=== PATIENT | male | born 1955 | race Caucasian/White ===

== ENCOUNTER 2017-12-04 10:40 | Emergency (ER) | payer BC ==
[~2017-12-04] VITALS: Ht 180.3 cm; Wt 124.5 kg
[~2017-12-04 10:40] MED LIST: ALEVE 220MG220 MG PO; ASPIR-LOW81 MG PO; ASPIRIN 32325 MG/TAB PO; ASPIRIN 81M81 MG/TA2 PO; BUPROPION HCL75 MG PO; BUPROPION75 MG PO; CENTRUM SILVER1 TA1 PO; CHOLESTEROL MED; CLOPIDOGREL; CLOPIDOGREL PO; COUMADIN 22.5 MG/TAB PO; COUMADIN 5MG5 MG/TAB PO; COUMADIN 77.5 MG/TAB PO; COUMADIN5 M1 IV; COUMADIN5 MG PO; CRESTOR 10MG10 MG PO; EPA FISH OIL1000 MG PO; FISH OIL1 IU PO; GLUCOPHAGE XR500 M1 PO; IMDUR 60MG60 MG/TAB PO; IMDUR60 MG PO; LANTUS SOLOS100 U/ML SC; LEVOXYL0.025 MG PO; LIPITOR20 MG PO; LIPOFEN150 MG PO; LISINOPRIL2.5 MG PO; LOPRESSOR; LOVENOX 100100 MG/ML SQ; LOVENOX 3030 MG/0.3 SQ; LOVENOX40 MG/0.4 SC; MAXZIDE; MEDI-FIRST ASP325 MG PO; METOPROLOL SUC100 M1 PO; MULTIPLE VITAMI1 CAP PO; MULTIPLE VITAMI1 TAB PO; Metoprolol ER PO; NITROGLYCERIN0.4 MG SL; NITROSTAT0.4 MG/TAB SL; NOVOLOG FLEX100 U/ML SC; OMEPRAZOLE20 MG PO; PLAVIX 75MG TAB75 MG PO; PREVACID30 MG PO; PRILOSEC; SUPER EPA 2002000 MG PO; TOPROL XL100 MG PO; TRICOR145 MG PO; TRICOR54 MG PO; TRILIPIX 135MG PO; VITAMIN C BUFF500 MG PO; VITAMIN C500 MG PO; VITAMIN D1000 IU PO; VITAMIN D32000 I1 PO; VITAMIN D32000 IU PO; WARFARIN SODIUM5 MG PO; WELLBUTRIN 75MG75 MG PO; WELLBUTRIN PO; ZESTRIL2.5 MG PO; ZOCOR 20MG20 MG PO; ZOCOR20 MG PO; [UNRECOGNIZED DRUG - OTHER]; [UNRECOGNIZED DRUG - REMARK]; [UNRECOGNIZED DRUG - REMARK]
[2017-12-04 10:41] VITALS: TEMP 99.2
[2017-12-04] MEDS ORDERED: PRINIVIL10 MG PO (10:55)
[2017-12-04] MEDS ORDERED: TRICOR145 MG PO (10:55)
[2017-12-04] MEDS ORDERED: FLOMAX 0.40.4 MG/CAP PO (10:57)
[2017-12-04] MEDS ORDERED: RANEXA 500MG T500 MG PO (10:58)
[2017-12-04 11:11] LABS: BASO % 0.2 % (0.0-2.0); EOS # 0.1 (0.0-0.7); EOS % 1.3 % (0-4.0); GRAN # 3.8 (1.4-6.5); GRAN % 71.8 % (42.2-75.2); HEMATOCRIT 38.3 % (42.0-52.0); HEMOGLOBIN 13.4 g/dl (13.5-18.0); LYMPH # 1.1 (1.2-3.4); LYMPH % 19.9 % (20.0-51.0); MEAN CELL VOLUME 84 fl (80.0-100.0); MEAN CORPUSCULAR HEMOGLOBIN 30 pg (27.0-31.0); MEAN CORPUSCULAR HGB CONC 35 g/dl (33.0-37.0); MEAN PLATELET VOLUME 9.8 fl (7.4-10.4); MONO # 0.3 (0.1-0.6); MONO % 6.2 % (1.7-9.3); PLATELET COUNT 124 K/mm3 (130-400); RED BLOOD COUNT 4.54 M/mm3 (4.20-5.60)
[2017-12-04 11:13] LABS: INR 2.7 (0.8-3.0); PROTHROMBIN TIME 30.7 SECONDS (9.7-12.8)
[2017-12-04 11:16] LABS: PARTIAL THROMBOPLASTIN TIME 44.9 SECONDS (26.0-37.0)
[2017-12-04 11:19] LABS: ALANINE AMINOTRANSFERASE 44 U/L (21-72); ALBUMIN 3.9 gm/dL (3.5-5.0); ALKALINE PHOSPHATASE 58 U/L (50-136); ANION GAP 9 mmol/L (7-16); AST,SGOT 41 U/L (15-37); BILIRUBIN,TOTAL 0.5 mg/dL (0.0-1.0); BLOOD UREA NITROGEN 20 mg/dL (9-20); CALCIUM 8.6 mg/dL (8.4-10.2); CARBON DIOXIDE 25 mmol/L (22-30); CHLORIDE 105 mmol/L (98-107); CREATININE, serum 0.77 mg/dL (0.66-1.25); GLUCOSE 186 mg/dL (74-106); POTASSIUM 3.8 mmol/L (3.4-5.0); SODIUM 139 mmol/L (137-145); TOTAL PROTEIN 6.8 gm/dL (6.4-8.2)
[2017-12-04 11:31] LABS: TROPONIN-I < 0.012 ng/mL (0.000-0.034)
[2017-12-04 15:52] VITALS: BP 107/45; PULSE 54
== END 2017-12-04 15:53 | disposition home or self-care (01) ==
LOC: COL.ER 10:40
PROVIDERS: Family Medicine
DX: R07.89 Other chest pain (principal); Z79.01 Long term (current) use of anticoagulants; Z79.84 Long term (current) use of oral hypoglycemic drugs; Z95.1 Presence of aortocoronary bypass graft
CPT/HCPCS: J3010

== ENCOUNTER → 2018-02-05 | Outpatient (CLI) | payer BC ==
[~2018-02-05] MED LIST changes: +FLOMAX 0.40.4 MG/CAP PO; +PRINIVIL10 MG PO; +RANEXA 500MG T500 MG PO
== END ==
LOC: COL.RAD 14:16
DX: K80.20 Calculus of gallbladder without cholecystitis without obstruction (principal); N40.0 Benign prostatic hyperplasia without lower urinary tract symptoms; R31.0 Gross hematuria

== ENCOUNTER 2018-03-26 09:55 | Inpatient (IN) | payer BC ==
[~2018-03-26] VITALS: Ht 180.3 cm; Wt 123.0 kg
[2018-03-26] VITALS (378 sets, daily range): BP systolic 114–149; BP diastolic 50–75; PULSE 54–61; TEMP 98.1–98.3; O2SAT 93–99
[~2018-03-26 09:55] MED LIST changes: -METOPROLOL SUC100 M1 PO
[2018-03-26] MEDS ORDERED: COUMADIN 5MG5 MG/TAB PO (10:15)
[2018-03-26 10:20] LABS: BASO % 0.4 % (0.0-2.0); EOS # 0.2 (0.0-0.7); EOS % 3.4 % (0-4.0); GRAN # 3.2 (1.4-6.5); GRAN % 60.3 % (42.2-75.2); HEMATOCRIT 41.3 % (42.0-52.0); HEMOGLOBIN 14.1 g/dl (13.5-18.0); LYMPH # 1.5 (1.2-3.4); LYMPH % 27.5 % (20.0-51.0); MEAN CELL VOLUME 86 fl (80.0-100.0); MEAN CORPUSCULAR HEMOGLOBIN 29 pg (27.0-31.0); MEAN CORPUSCULAR HGB CONC 34 g/dl (33.0-37.0); MEAN PLATELET VOLUME 9.5 fl (7.4-10.4); MONO # 0.4 (0.1-0.6); MONO % 7.5 % (1.7-9.3); PLATELET COUNT 123 K/mm3 (130-400); RED BLOOD COUNT 4.83 M/mm3 (4.20-5.60); REDCELL DISTRIBUTION WIDTH-CV 13.9 % (11.5-14.5)
[2018-03-26 10:29] LABS: ALBUMIN 3.9 gm/dL (3.5-5.0); BILIRUBIN,TOTAL 0.4 mg/dL (0.0-1.0); CALCIUM 8.8 mg/dL (8.4-10.2); CREATININE, serum 0.92 mg/dL (0.66-1.25); POTASSIUM 4.2 mmol/L (3.4-5.0); TOTAL PROTEIN 6.9 gm/dL (6.4-8.2)
[2018-03-26 10:59] LABS: INR 2.7 (0.8-3.0); PROTHROMBIN TIME 30.7 SECONDS (9.7-12.8)
[2018-03-26 11:01] LABS: PARTIAL THROMBOPLASTIN TIME 42.2 SECONDS (26.0-37.0)
[2018-03-26 11:08] LABS: TROPONIN-I < 0.012 ng/mL (0.000-0.034)
[2018-03-26] MEDS ORDERED: ISOSORBIDE MON120 MG PO (13:07)
[2018-03-26] MEDS ORDERED: SYNTHROID0.125 MG/T PO (13:08)
[2018-03-26] MEDS ORDERED: MULTI VITAMINS1 TAB PO (13:14)
[2018-03-26 23:37] LABS: INR 2.6 (0.8-3.0); PROTHROMBIN TIME 29.8 SECONDS (9.7-12.8)
[2018-03-27] VITALS (930 sets, daily range): BP systolic 87–135; BP diastolic 53–75; PULSE 51–65; TEMP 98.3–99; O2SAT 80–100
[2018-03-27 06:27] LABS: INR 2.2 (0.8-3.0); PROTHROMBIN TIME 24.5 SECONDS (9.7-12.8)
[2018-03-27 06:30] LABS: CHOLESTEROL 128 mg/dL (120-200); CHOLESTEROL RISK RATIO 4.7; HDL CHOLESTEROL 27 mg/dL; LDL CHOLESTEROL 65 mg/dL; TRIGLYCERIDE 179 mg/dL
[2018-03-27 06:42] LABS: TROPONIN-I < 0.012 ng/mL (0.000-0.034)
[2018-03-27 11:09] LABS: INR 1.9 (0.8-3.0); PROTHROMBIN TIME 21.7 SECONDS (9.7-12.8)
[2018-03-27 19:18] LABS: INR 1.6 (0.8-3.0); PROTHROMBIN TIME 18.1 SECONDS (9.7-12.8)
[2018-03-28] VITALS (485 sets, daily range): BP systolic 91–137; BP diastolic 30–70; PULSE 53–71; TEMP 97.6–98.5; O2SAT 91–100
[2018-03-28 05:43] LABS: INR 1.4 (0.8-3.0); PROTHROMBIN TIME 16.2 SECONDS (9.7-12.8)
[2018-03-28] MEDS ORDERED: RANEXA1000 MG PO (12:23)
[2018-03-28] MEDS ORDERED: PLAVIX 75MG TAB75 MG PO (12:23)
== END 2018-03-28 17:15 | disposition home or self-care (01) | DRG 287 ==
LOC: COL.ER 09:55 → ICU 10:59
PROVIDERS: Emergency Medicine; Internal Medicine Cardiovascular Disease; Physician Assistant
PROC: 4A023N7 Measurement of Cardiac Sampling and Pressure, Left Heart, Percutaneous Approach (ICD-10-PCS; principal; 2018-03-28)
PROC: B2111ZZ Fluoroscopy of Multiple Coronary Arteries using Low Osmolar Contrast (ICD-10-PCS; 2018-03-28)
PROC: B2181ZZ Fluoroscopy of Left Internal Mammary Bypass Graft using Low Osmolar Contrast (ICD-10-PCS; 2018-03-28)
PROC: B2131ZZ Fluoroscopy of Multiple Coronary Artery Bypass Grafts using Low Osmolar Contrast (ICD-10-PCS; 2018-03-28)
PROC: 4A033BC Measurement of Arterial Pressure, Coronary, Percutaneous Approach (ICD-10-PCS; 2018-03-28)
PROC: B2151ZZ Fluoroscopy of Left Heart using Low Osmolar Contrast (ICD-10-PCS; 2018-03-28)
DX: I25.110 Atherosclerotic heart disease of native coronary artery with unstable angina pectoris (principal); Z95.1 Presence of aortocoronary bypass graft; Z95.5 Presence of coronary angioplasty implant and graft; Z86.718 Personal history of other venous thrombosis and embolism; Z79.01 Long term (current) use of anticoagulants; Z23 Encounter for immunization; I10 Essential (primary) hypertension; I87.2 Venous insufficiency (chronic) (peripheral); E78.5 Hyperlipidemia, unspecified; E11.9 Type 2 diabetes mellitus without complications; G47.33 Obstructive sleep apnea (adult) (pediatric); E66.01 Morbid (severe) obesity due to excess calories; Z86.73 Personal history of transient ischemic attack (TIA), and cerebral infarction without residual deficits; E03.9 Hypothyroidism, unspecified; Z68.37 Body mass index [BMI] 37.0-37.9, adult; Z79.84 Long term (current) use of oral hypoglycemic drugs
CPT/HCPCS: 99223-AI; 99232-AI; 99239; C1769; C1887; J0153; J1644; J2250; J2270; J3010; J3430; Q9967

== ENCOUNTER 2018-03-28 17:12 | Emergency (ER) | payer BC ==
[~2018-03-28] VITALS: Ht 180.3 cm; Wt 122.7 kg
[~2018-03-28 17:12] MED LIST changes: +ISOSORBIDE MON120 MG PO; +MULTI VITAMINS1 TAB PO; +RANEXA1000 MG PO; +SYNTHROID0.125 MG/T PO
[2018-03-28 17:18] VITALS: TEMP 97
[2018-03-28 19:32] VITALS: BP 130/76; PULSE 57
== END 2018-03-28 19:33 | disposition home or self-care (01) ==
LOC: COL.ER 17:12
DX: R07.89 Other chest pain (principal); I10 Essential (primary) hypertension; E11.9 Type 2 diabetes mellitus without complications; E78.5 Hyperlipidemia, unspecified; E66.01 Morbid (severe) obesity due to excess calories; Z68.37 Body mass index [BMI] 37.0-37.9, adult; Z86.711 Personal history of pulmonary embolism; Z86.718 Personal history of other venous thrombosis and embolism; Z98.890 Other specified postprocedural states; Z86.73 Personal history of transient ischemic attack (TIA), and cerebral infarction without residual deficits; Z79.02 Long term (current) use of antithrombotics/antiplatelets; Z79.82 Long term (current) use of aspirin; Z79.84 Long term (current) use of oral hypoglycemic drugs

== ENCOUNTER → 2018-05-02 | Outpatient (CLI) | payer BC | LOC: COL.RAD 08:48 | DX: K80.20 Calculus of gallbladder without cholecystitis without obstruction (principal); I51.7 Cardiomegaly; Z95.1 Presence of aortocoronary bypass graft ==

== ENCOUNTER → 2018-05-23 | Outpatient (CLI) | payer BC ==
[2018-05-23 07:22] LABS: ARTERIAL BLD GAS O2 SATURATION 94.4 % (92-100); ARTERIAL BLD GAS TCO2 CT 24.3; ARTERIAL BLOOD GAS BASE EXCESS -1.3 (-2-2); ARTERIAL BLOOD GAS HCO3 23.1 meq/L (22-26); ARTERIAL BLOOD GAS PO2 77.1 mmHg (80-100)
== END ==
LOC: COL.PUL 06:51
PROVIDERS: Internal Medicine Interventional Cardiology
DX: R06.02 Shortness of breath (principal); Z87.891 Personal history of nicotine dependence

== ENCOUNTER → 2018-06-29 | Outpatient (CLI) | payer BC | LOC: COL.PUL 06-05 13:00 | DX: R06.02 Shortness of breath (principal); Z87.891 Personal history of nicotine dependence | CPT/HCPCS: J7674 ==

== ENCOUNTER 2019-02-12 15:39 | Inpatient (IN) | payer BC ==
[~2019-02-12] VITALS: Ht 180.3 cm; Wt 120.9 kg
[2019-02-12 16:17] LABS: BASO % 0.3 % (0.0-2.0); EOS # 0.1 (0.0-0.7); EOS % 2.4 % (0-4.0); GRAN # 3.5 (1.4-6.5); GRAN % 60.3 % (42.2-75.2); HEMATOCRIT 39.9 % (42.0-52.0); HEMOGLOBIN 13.4 g/dl (13.5-18.0); LYMPH # 1.7 (1.2-3.4); LYMPH % 29.7 % (20.0-51.0); MEAN CELL VOLUME 86 fl (80.0-100.0); MEAN CORPUSCULAR HEMOGLOBIN 29 pg (27.0-31.0); MEAN CORPUSCULAR HGB CONC 34 g/dl (33.0-37.0); MEAN PLATELET VOLUME 9.5 fl (7.4-10.4); MONO # 0.4 (0.1-0.6); MONO % 6.8 % (1.7-9.3); PLATELET COUNT 148 K/mm3 (130-400); RED BLOOD COUNT 4.64 M/mm3 (4.20-5.60); REDCELL DISTRIBUTION WIDTH-CV 13.7 % (11.5-14.5)
[2019-02-12 16:19] LABS: INR 3.2 (0.8-3.0); PROTHROMBIN TIME 39.2 SECONDS (9.7-12.8)
[2019-02-12 16:21] LABS: ALANINE AMINOTRANSFERASE 23 U/L (21-72); ALBUMIN 4.4 gm/dL (3.5-5.0); ALKALINE PHOSPHATASE 45 U/L (50-136); ANION GAP 9 mmol/L (7-16); AST,SGOT 32 U/L (15-37); BILIRUBIN,TOTAL 0.4 mg/dL (0.0-1.0); BLOOD UREA NITROGEN 15 mg/dL (9-20); CALCIUM 9.3 mg/dL (8.4-10.2); CARBON DIOXIDE 26 mmol/L (22-30); CHLORIDE 106 mmol/L (98-107); CREATININE, serum 0.96 (0.66-1.25); GLUCOSE 137 mg/dL (74-106); LIPASE 69 U/L (23-300); SODIUM 141 mmol/L (137-145); TOTAL PROTEIN 7.5 gm/dL (6.4-8.2)
[2019-02-12 16:34] LABS: TROPONIN-I < 0.012 ng/mL (0.000-0.035)
--- NOTE | 2019-02-12 19:44 | NUR ---
Arrived to medical floor. Assessment complete. Lungs clear. Heart sounds normal. Bowels active x4. Pulses strong throughout. Bilateral lower edema +1 with brownish tinge to lower extremities. Right hand surgery scheduling coordinator stronger than left. Pupils round reactive to light. Denies pain. Dr. Rivera in room to see patient. Denies needs at this time.
[2019-02-12 20:27] VITALS: BP 141/61; PULSE 57; TEMP 97.8
--- NOTE | 2019-02-12 21:20 | NUR ---
Patient passed bedside swallow study without difficulty. Proivded with food per verbal order from Dr. Rivera. Will continue to monitor. Updated Dr. Rivera patient has at home CPAP- okay to add order and med rec completed.
--- NOTE | 2019-02-12 22:20 | NUR ---
Epharmacy request to hold coumadin for INR of 3.2. Spoke with Dr. Rivera. Would like to cover patient with Coumadin 2.5 mg-half of patient normal dosing. Attempted to fax pharmacy to remove from pending status.
[2019-02-12] MEDS ORDERED: TOPROL XL200 MG PO (22:25)
[2019-02-12] MEDS ORDERED: TRULICITY0.75 MG/0. SQ (22:26)
[2019-02-12 23:35] VITALS: BP 124/58; PULSE 55
--- NOTE | 2019-02-12 23:49 | NUR ---
Spoke with Francois. updated on Dr. Rivera aware of INR level would like to give coumadin. Released from pending status
--- NOTE | 2019-02-13 01:57 | NUR ---
Resting in bed. Right student support services director stronger than left. Left student support services director/left leg movement improving from earlier assessments. Denies needs. Call light in reach.
[2019-02-13 03:16] VITALS: BP 119/61; PULSE 53
--- NOTE | 2019-02-13 03:22 | NUR ---
Resting in bed. Denies needs. Call light in reach.
--- NOTE | 2019-02-13 06:13 | NUR ---
Patient had left sided weakness throughout night. Patient drowsy this AM. Alert and orientated. States "I'm just tired." Hand chocolate maker remain unequal and left lower extremity weak-able to lift and hold a short distance off of bed. Denies needs this AM. Call light in reach.
[2019-02-13 07:03] LABS: BASO % 0.2 % (0.0-2.0); EOS # 0.2 (0.0-0.7); EOS % 3.1 % (0-4.0); GRAN # 3.1 (1.4-6.5); GRAN % 59.4 % (42.2-75.2); HEMOGLOBIN 12.2 g/dl (13.5-18.0); LYMPH # 1.6 (1.2-3.4); LYMPH % 30.5 % (20.0-51.0); MEAN CELL VOLUME 86 fl (80.0-100.0); MEAN CORPUSCULAR HEMOGLOBIN 29 pg (27.0-31.0); MEAN CORPUSCULAR HGB CONC 34 g/dl (33.0-37.0); MEAN PLATELET VOLUME 9.7 fl (7.4-10.4); MONO # 0.3 (0.1-0.6); PLATELET COUNT 125 K/mm3 (130-400); REDCELL DISTRIBUTION WIDTH-CV 13.8 % (11.5-14.5)
[2019-02-13 07:06] LABS: PROTHROMBIN TIME 36.3 SECONDS (9.7-12.8)
[2019-02-13 07:10] LABS: HEMATOCRIT 36.2 % (42.0-52.0)
[2019-02-13 07:12] LABS: ANION GAP 7 mmol/L (7-16); BLOOD UREA NITROGEN 11 mg/dL (9-20); CARBON DIOXIDE 23 mmol/L (22-30); CHLORIDE 110 mmol/L (98-107); CHOLESTEROL 95 mg/dL (120-200); CHOLESTEROL RISK RATIO 4.1; CREATININE, serum 0.87 (0.66-1.25); GLUCOSE 125 mg/dL (74-106); HDL CHOLESTEROL 23 mg/dL; LDL CHOLESTEROL 46 mg/dL; POTASSIUM 3.8 mmol/L (3.4-5.0); SODIUM 140 mmol/L (137-145); TRIGLYCERIDE 132 mg/dL
--- NOTE | 2019-02-13 07:12 | NUR ---
Report given to ADRIAN Mason
[2019-02-13 07:25] LABS: TROPONIN-I < 0.012 ng/mL (0.000-0.035)
[2019-02-13 07:37] VITALS: BP 126/67; PULSE 54; TEMP 97.2
--- NOTE | 2019-02-13 08:20 | NUR ---
Assessment complete. Pt resting in bed, A&O x 4. Breath sounds CTAB. BS active x 4. Pt denies pain at this time. IVF's infusing per orders through right forearm without s/s of complications. Continued weakness to left extremities with drift to upper and lower left ext. Left hand master automotive glass technician weak and unequal to the right hand master automotive glass technician. POC reviewed with pt regarding sched tests and no food/drink until testing complete. No further needs reported. Call light in reach. Bed alarm on.
--- NOTE | 2019-02-13 09:10 | NUR ---
Pt assisted from bed to WC with assist x 2, shuffling gait. Pt to MRI via WC. IVF's stopped at this time.
--- NOTE | 2019-02-13 10:00 | NUR ---
Pt back to room from MRI via WC.
[2019-02-13 11:02] VITALS: BP 145/77; PULSE 55; TEMP 98.6
--- NOTE | 2019-02-13 11:40 | NUR ---
SW met with the patient to discuss discharge plan. The patient lives in [place] with his , Kelsey (ph#[phone]). He reports independence with ADLs and has a cane. The patient's PCP is Dr. Dylan Hanna and he receives his medications at [facility]. He reports no difficulties obtaining his meds. The patient does not have advanced directives and he was not interested in completing them at this time. The patient plans to return back home with his upon discharge. No additional needs at this time.
--- NOTE | 2019-02-13 12:23 | NUR ---
First visit from the tile professional. No needs right now.
--- NOTE | 2019-02-13 14:40 | NUR ---
NICOLAS met with the patient and the patient's to review PT's recommendation of outpatient PT/OT. The patient reports that he is in agreeance to this and plans to set up the appointments himself. The patient is to discharge back home with his today, 02/13. No additional needs at this time.
--- NOTE | 2019-02-13 15:33 | NUR ---
Discharge instructions reviewed with pt regarding outpt orders and follow-up appointments. Pt verbalizes understanding, discharged home, escorted out of facility via WC accompanied by SUPERVISOR FLESHING and pt's .
== END 2019-02-13 15:34 | disposition home or self-care (01) | DRG 69 ==
LOC: COL.ER 15:39 → MEDICAL 18:46 → COL.ER 18:46 → MEDICAL 22:28
PROVIDERS: Emergency Medicine; ADMIT Hospitalist
DX: G45.9 Transient cerebral ischemic attack, unspecified (principal); I48.20 Chronic atrial fibrillation, unspecified; R29.704 NIHSS score 4; G31.9 Degenerative disease of nervous system, unspecified; R07.89 Other chest pain; E03.9 Hypothyroidism, unspecified; N40.0 Benign prostatic hyperplasia without lower urinary tract symptoms; I10 Essential (primary) hypertension; E78.5 Hyperlipidemia, unspecified; I87.2 Venous insufficiency (chronic) (peripheral); E11.9 Type 2 diabetes mellitus without complications; G47.33 Obstructive sleep apnea (adult) (pediatric); E66.01 Morbid (severe) obesity due to excess calories; E78.1 Pure hyperglyceridemia; I25.10 Atherosclerotic heart disease of native coronary artery without angina pectoris; Z95.5 Presence of coronary angioplasty implant and graft; Z95.1 Presence of aortocoronary bypass graft; Z95.820 Peripheral vascular angioplasty status with implants and grafts; Z79.01 Long term (current) use of anticoagulants; Z86.718 Personal history of other venous thrombosis and embolism; Z86.711 Personal history of pulmonary embolism; Z79.890 Hormone replacement therapy; Z79.84 Long term (current) use of oral hypoglycemic drugs; Z87.891 Personal history of nicotine dependence; Z86.73 Personal history of transient ischemic attack (TIA), and cerebral infarction without residual deficits; Z79.82 Long term (current) use of aspirin; Z28.21 Immunization not carried out because of patient refusal; Z68.35 Body mass index [BMI] 35.0-35.9, adult
CPT/HCPCS: 99222-AI; 99238; A9585; J7030; Q9967

== ENCOUNTER → 2019-02-27 | Outpatient (CLI) | payer BC ==
[~2019-02-27] MED LIST changes: +TOPROL XL200 MG PO; +TRULICITY0.75 MG/0. SQ
== END ==
LOC: COL.RAD 10:59
DX: I63.411 Cerebral infarction due to embolism of right middle cerebral artery (principal); K80.20 Calculus of gallbladder without cholecystitis without obstruction; I71.00 Dissection of unspecified site of aorta
CPT/HCPCS: Q9967

== ENCOUNTER 2019-03-01 11:15 | Outpatient (RCR) | payer BC | END 2019-05-22 | disposition home or self-care (01) | LOC: MKS.ESL.PT | DX: I63.9 Cerebral infarction, unspecified (principal) ==

== ENCOUNTER → 2021-02-10 | Outpatient (CLI) | payer BC ==
[~2021-02-10] MED LIST changes: +MASON NATURAL2000 IU PO; +OZEMPIC1 MG/0.75 SQ; +TOPROL XL 50MG50 MG PO; -TOPROL XL200 MG PO
[2021-02-10 13:01] LABS: THYROID STIMULATING HORMONE 1.666 uIU/mL (0.350-4.940); TROPONIN-I 0.011 ng/mL (0.00-0.033)
== END ==
LOC: ZCOL.LAB 10:50
PROVIDERS: Internal Medicine Interventional Cardiology
DX: R42 Dizziness and giddiness (principal)

== ENCOUNTER → 2021-03-10 | Outpatient (CLI) | payer BC | LOC: COL.VAS 11:41 | DX: G31.9 Degenerative disease of nervous system, unspecified (principal); I67.82 Cerebral ischemia | CPT/HCPCS: A9585 ==

== ENCOUNTER 2021-03-24 07:37 | Outpatient (CLI) | payer BC ==
[~2021-03-24] VITALS: Ht 177.8 cm; Wt 110.0 kg
[2021-03-24] VITALS (7 sets, daily range): BP systolic 108–123; BP diastolic 55–81; PULSE 60–71; TEMP 99.6
[~2021-03-24 07:37] MED LIST changes: -MASON NATURAL2000 IU PO; -OZEMPIC1 MG/0.75 SQ
[2021-03-24] MEDS ORDERED: OZEMPIC1 MG/0.75 SQ (12:12)
[2021-03-24] MEDS ORDERED: MASON NATURAL2000 IU PO (12:12)
== END 2021-03-24 15:13 ==
LOC: EUO 07:37
DX: U07.1 COVID-19 (principal)
CPT/HCPCS: M0243; Q0244

== ENCOUNTER 2021-12-27 15:30 | Outpatient (RCR) | payer BC ==
[~2021-12-27 15:30] MED LIST changes: +MASON NATURAL2000 IU PO; +OZEMPIC1 MG/0.75 SQ
== END 2022-01-12 | disposition home or self-care (01) ==
LOC: MKS.ESL.PT
DX: H81.10 Benign paroxysmal vertigo, unspecified ear (principal)